=== PATIENT | female | born 2000 | race African-American/Black ===

== ENCOUNTER 2019-10-09 03:53 | Inpatient (IN) | payer MEDICAID ==
[~2019-10-09] VITALS: Ht 152.4 cm; Wt 59.0 kg
[2019-10-09] MEDS: DEXT 5%/LR + PITOCIN 20UNITS/L 1,000 ML IV SCH ×2 (04:20→07:20)
[2019-10-09] MEDS ORDERED: DEXT 5%/LR + PITOCIN 20UNITS/L 1,000 ML IV SCH (04:28)
[2019-10-09] MEDS ORDERED: IBUPROFEN 400MG TABLET PO PRN (04:30)
[2019-10-09] MEDS ORDERED: RHO(D) IMMUNE GLOBULIN 300 MCG/SYR IM PRN (04:30)
[2019-10-09] MEDS ORDERED: CALC-1042 PO (04:38)
[2019-10-09] MEDS ORDERED: FERR-71 PO (04:38)
[2019-10-09] MEDS ORDERED: PREN1TAB78 PO (04:38)
[2019-10-09] MEDS ORDERED: NALOXONE HCL 0.4 MG/ML 1ML VIAL IM PRN (04:45)
[2019-10-09] MEDS ORDERED: METHYLERGONOVINE MALEATE 0.2 MG/ML IM PRN (04:45)
[2019-10-09 06:50] LABS: INR 0.9; PARTIAL THROMBOPLASTIN TIME 26.2 sec (23.4-31.0); PROTHROMBIN TIME 9.8 sec (9.6-11.0)
[2019-10-09 06:55] LABS: BASOPHILS % 0.3 % (0.0-2.0); EOSINOPHILS % 0.2 % (0.0-5.0); HEMATOCRIT. 26.5 % (36.0-48.0); HEMOGLOBIN. 8.5 g/dL (12.0-16.0); LYMPHOCYTES % 14.8 % (20.0-50.0); MEAN CORPUSCULAR HEMOGLOBIN 22.9 pg (28.0-32.0); MEAN CORPUSCULAR VOLUME 71.3 fL (81.0-99.0); MEAN PLATELET VOLUME 8.4 fl (7.4-10.4); MONOCYTES % 6.4 % (2.0-8.0); NEUTROPHILS % 78.3 % (40.0-76.0); PLATELET 168 x1000/uL (130-400); RED BLOOD CELL COUNT 3.72 mill/uL (4.2-5.4); RED CELL DISTRIBUTION WIDTH 20.8 % (11.6-14.6)
[2019-10-09 07:05] LABS: *AMPHETAMINES SCREEN URINE NEGATIVE (NEGATIVE); *BARBITURATES SCREEN URINE NEGATIVE (NEGATIVE); *BENZODIAZEPINES SCREEN URINE NEGATIVE (NEGATIVE); *COCAINE SCREEN URINE NEGATIVE (NEGATIVE)
[2019-10-09 07:06] LABS: CANNABINOID URINE SCREEN NEGATIVE (NEGATIVE); METHADONE URINE SCREEN NEGATIVE (NEGATIVE); OPIATES URINE SCREEN NEGATIVE (NEGATIVE); PHENCYCLIDINE URINE SCREEN NEGATIVE (NEGATIVE)
[2019-10-09 07:08] LABS: KETONES URINE 1+ (NEGATIVE); LEUKOCYTE ESTERASE URINE NEGATIVE (NEGATIVE); NITRITE URINE NEGATIVE (NEGATIVE); OCCULT BLOOD URINE 3+ (NEGATIVE); PH URINE 7.5 (4.5-8.0); PROTEIN URINE 2+ (NEGATIVE); SPECIFIC GRAVITY URINE 1.016 (1.005-1.030); UROBILINOGEN URINE 0.2 E.U./dL (0.2-1.0)
[2019-10-09 07:21] LABS: HEPATITIS B SURFACE ANTIGEN NEGATIVE
[2019-10-09 07:28] LABS: CLARITY URINE CLOUDY (CLEAR); COLOR URINE RED (YELLOW)
[2019-10-09] MEDS: IBUPROFEN 800MG TABLET PO PRN ×2 (07:28→19:25)
[2019-10-09 07:35] VITALS: BP 114/61
[2019-10-09 08:05] VITALS: BP 98/51
[2019-10-09 16:00] VITALS: BP 92/51
[2019-10-09 22:00] VITALS: BP 95/51
[2019-10-10 06:39] LABS: BASOPHILS % 0.4 % (0.0-2.0); HEMATOCRIT. 26.6 % (36.0-48.0); HEMOGLOBIN. 8.7 g/dL (12.0-16.0); LYMPHOCYTES % 27.2 % (20.0-50.0); MEAN CORPUSCULAR VOLUME 70.2 fL (81.0-99.0); MEAN PLATELET VOLUME 8.4 fl (7.4-10.4); MONOCYTES % 6.5 % (2.0-8.0); NEUTROPHILS % 63.9 % (40.0-76.0); PLATELET 190 x1000/uL (130-400); RED BLOOD CELL COUNT 3.79 mill/uL (4.2-5.4); RED CELL DISTRIBUTION WIDTH 19.9 % (11.6-14.6)
[2019-10-10 07:30] VITALS: BP 90/50
[2019-10-10 13:30] VITALS: BP 90/52
== END 2019-10-10 14:45 | disposition home or self-care (01) | DRG 560 ==
LOC: OBSVTOIN 03:53 → 8 EST LDRP 03:53 → 8EST 09:02
PROVIDERS: ADMIT Obstetrics & Gynecology; ATTEND Obstetrics & Gynecology
PROC: 10E0XZZ Delivery of Products of Conception, External Approach (ICD-10-PCS; principal; 2019-10-09)
PROC: 30233S1 Transfusion of Nonautologous Globulin into Peripheral Vein, Percutaneous Approach (ICD-10-PCS; 2019-10-09)
DX: O99.02 Anemia complicating childbirth (principal); D62 Acute posthemorrhagic anemia; Z37.0 Single live birth; Z3A.38 38 weeks gestation of pregnancy
CPT/HCPCS: 36415; 80305; 81003; 85025; 86592; 86703; 86762; 86850; 86870; 86886; 86900; 87340; 90384; 99281; J2590

== ENCOUNTER 2020-10-03 23:56 | Emergency (ER) | payer MEDICAID ==
[~2020-10-03] VITALS: Ht 152.4 cm; Wt 50.0 kg
[2020-10-04 00:21] VITALS: BP 124/84
[2020-10-04 01:03] LABS: CLARITY URINE CLOUDY (CLEAR); COLOR URINE YELLOW (YELLOW); KETONES URINE TRACE (NEGATIVE); LEUKOCYTE ESTERASE URINE 2+ (NEGATIVE); NITRITE URINE NEGATIVE (NEGATIVE); OCCULT BLOOD URINE NEGATIVE (NEGATIVE); PH URINE 6.5 (4.5-8.0); PROTEIN URINE 1+ (NEGATIVE); SPECIFIC GRAVITY URINE 1.032 (1.005-1.030)
[2020-10-04] MEDS ORDERED: LIDOCAINE HCL 1% 20ML VIAL (Pyxis) INJ INFIL ONE (02:00)
[2020-10-04] MEDS ORDERED: AZITHROMYCIN 500 MG TABLET PO ONE (02:00)
[2020-10-04] MEDS ORDERED: CEFTRIAXONE SODIUM 500 MG/VIAL IM ONE (02:00)
[2020-10-06 10:09] LABS: NEISSERIA GONORRHOEAE NAA Positive (Negative)
== END 2020-10-04 02:42 | disposition home or self-care (01) ==
LOC: ER 23:56
DX: Z20.2 Contact with and (suspected) exposure to infections with a predominantly sexual mode of transmission (principal)
CPT/HCPCS: 81003; 81025; 87086; 87210; 87491; 87591; 96372; 99283; J0696; J3490

== ENCOUNTER 2021-02-11 22:43 | Emergency (ER) | payer MEDICAID ==
[~2021-02-11] VITALS: Ht 152.4 cm; Wt 53.0 kg
[2021-02-12 01:37] LABS: CLARITY URINE CLEAR (CLEAR); COLOR URINE YELLOW (YELLOW); KETONES URINE NEGATIVE (NEGATIVE); LEUKOCYTE ESTERASE URINE 3+ (NEGATIVE); NITRITE URINE NEGATIVE (NEGATIVE); OCCULT BLOOD URINE NEGATIVE (NEGATIVE); PROTEIN URINE NEGATIVE (NEGATIVE); SPECIFIC GRAVITY URINE 1.029 (1.005-1.030); UROBILINOGEN URINE 0.2 E.U./dL (0.2-1.0)
[2021-02-12] MEDS ORDERED: CEFTRIAXONE SODIUM 500 MG/VIAL IM ONE (03:00)
[2021-02-12] MEDS ORDERED: LIDOCAINE HCL 1% 20ML VIAL (Pyxis) INJ INFIL ONE (03:00)
[2021-02-12] MEDS ORDERED: DOXY100C5 MT (03:33)
[2021-02-12 03:40] VITALS: BP 112/63
== END 2021-02-12 03:45 | disposition home or self-care (01) ==
LOC: ER 22:43
DX: N39.0 Urinary tract infection, site not specified (principal); Z20.2 Contact with and (suspected) exposure to infections with a predominantly sexual mode of transmission
CPT/HCPCS: 81003; 81025; 87086; 87210; 96372; 99283; J0696; J3490

== ENCOUNTER 2021-03-06 00:26 | Emergency (ER) | payer MEDICAID ==
[~2021-03-06] VITALS: Ht 152.4 cm; Wt 51.0 kg
[~2021-03-06 00:26] MED LIST: DOXY100C5 MT
[2021-03-06 01:15] VITALS: BP 108/50
[2021-03-06] MEDS ORDERED: DEXAMETHASONE 4MG TABLET PO ONE (01:45)
[2021-03-06] MEDS ORDERED: FLUCONAZOLE 150MG TABLET PO NR (03:00)
[2021-03-06] MEDS ORDERED: PENICILLIN G PROCAINE 600000 UNITS/ML SYRINGE IM NR (03:15)
[2021-03-06] MEDS ORDERED: PENICILLIN G BENZATHINE 1,200,000 UNITS/2ML SYR IM NR (03:45)
[2021-03-06] MEDS ORDERED: FLUC150T5 MT (04:14)
[2021-03-06] MEDS ORDERED: MED4 MT (04:40)
[2021-03-06 05:29] LABS: CLARITY URINE CLEAR (CLEAR); COLOR URINE YELLOW (YELLOW); PH URINE 6.5 (4.5-8.0); PROTEIN URINE NEGATIVE (NEGATIVE); SPECIFIC GRAVITY URINE 1.025 (1.005-1.030)
[2021-03-06 05:30] LABS: KETONES URINE NEGATIVE (NEGATIVE); LEUKOCYTE ESTERASE URINE NEGATIVE (NEGATIVE); NITRITE URINE NEGATIVE (NEGATIVE); OCCULT BLOOD URINE NEGATIVE (NEGATIVE); UROBILINOGEN URINE 0.2 E.U./dL (0.2-1.0)
[2021-03-06 05:32] LABS: MONOTEST NEGATIVE (NEGATIVE)
== END 2021-03-06 04:45 | disposition home or self-care (01) ==
LOC: ER 00:35
DX: B37.3 Candidiasis of vulva and vagina (principal); J02.0 Streptococcal pharyngitis; Z98.890 Other specified postprocedural states; Z20.822 Contact with and (suspected) exposure to COVID-19
CPT/HCPCS: 81003; 81025; 86308; 87070; 87426; 87430; 96372; 99283; J0561; J8540; J2510